=== PATIENT | female | born 1970 | race Caucasian/White ===

== ENCOUNTER 2021-09-29 19:30 | Emergency (ER) | payer OTHER ==
[~2021-09-29] VITALS: Ht 165.1 cm; Wt 62.3 kg
[2021-09-29 19:46] VITALS: BP 121/60
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
--- NOTE | 2021-09-29 21:03 | RAD ---
XR HAND_RIGHT 3 VIEWS 09/29/2021 7:44 PM INDICATION: Hand injury COMPARISON: None available. TECHNIQUE: 3 views of the right hand are provided. FINDINGS/ IMPRESSION: Focal cortical irregularity involving the base of the fifth metacarpal may represent a mildly displac ed fracture. Correlate with point tenderness. This is only seen on a single view with indeterminate e pidural involvement. Cross-sectional imaging could be of benefit. Joint spaces are maintained. Bone m ineralization is within normal limits. Regional soft tissues are within normal limits. There is no so ft tissue gas or osseous erosion. No radiopaque foreign body. Electronically signed by: Keerthi Hager MD (09/29/2021 9:00 PM) KELLY
[2021-09-29] MEDS ORDERED: DIPHTH,PERTUSS(ACELL),TET TOX 0.5 ML DISP.SYRIN. VAX IM ONE (21:15)
[2021-09-29] MEDS ORDERED: NEOMY/BACITR/POLYMYXIN OINT PACKET. TP ONE (21:15)
[2021-09-29] MEDS ORDERED: HYDROcodone/APAP 5/325MG 1 TAB TABLET ONE (21:28)
[2021-09-29] MEDS ORDERED: HYDR-2155 PO (21:54)
[2021-09-29] MEDS ORDERED: HYDROcodone/APAP 5/325MG 1 TAB TABLET PO ONE (22:00)
== END 2021-09-29 22:04 | disposition home or self-care (01) ==
LOC: ER 19:49
DX: S62.346A Nondisplaced fracture of base of fifth metacarpal bone, right hand, initial encounter for closed fracture (principal); S00.83XA Contusion of other part of head, initial encounter; W05.1XXA Fall from non-moving nonmotorized scooter, initial encounter; Y93.89 Activity, other specified; Y92.89 Other specified places as the place of occurrence of the external cause; Y99.8 Other external cause status
CPT/HCPCS: 29125; 73130; 90471; 90715; 99283

== ENCOUNTER → 2021-11-02 | Outpatient (CLI) | payer OTHER ==
[~2021-11-02] MED LIST: HYDR-2155 PO
--- NOTE | 2021-11-02 09:44 | RAD ---
EXAM: 3 views right hand DATE: 11/02/2021 8:40 AM INDICATION: Reason: 5TH METACARPAL FRACTURE, 4 WEEKS AGO- FOLLOW UP / Spl. Instructions: / History: . COMPARISON: No Prior FINDINGS/ IMPRESSION: Progressively healing base of fifth metacarpal fracture in stable alignment. No new fracture is seen. Electronically signed by: Durga Cosme MD (11/02/2021 9:42 AM) [id number]
== END ==
LOC: RAD 08:36
PROVIDERS: ATTEND Orthopaedic Surgery Sports Medicine
DX: S62.316D Displaced fracture of base of fifth metacarpal bone, right hand, subsequent encounter for fracture with routine healing (principal); X58.XXXD Exposure to other specified factors, subsequent encounter
CPT/HCPCS: 73130